=== PATIENT | female | born 2000 | race Caucasian/White ===

== ENCOUNTER 2019-09-20 18:24 | Inpatient (IN) | payer OTHER ==
[~2019-09-20] VITALS: Ht 157.5 cm; Wt 68.0 kg
[2019-09-20] MEDS ORDERED: RHO(D) IMMUNE GLOBULIN 300 MCG/SYR IM PRN (19:30)
[2019-09-20] MEDS ORDERED: IBUPROFEN 400MG TABLET PO PRN (19:30)
[2019-09-20] MEDS ORDERED: DEXT 5%/LR + PITOCIN 20UNITS/L 1,000 ML IV SCH (21:04)
[2019-09-20] MEDS ORDERED: RHO(D) IMMUNE GLOBULIN 300 MCG/SYR IM ONE (21:15)
[2019-09-20 21:23] LABS: CLARITY URINE CLEAR (CLEAR); COLOR URINE YELLOW (YELLOW); KETONES URINE TRACE (NEGATIVE); LEUKOCYTE ESTERASE URINE TRACE (NEGATIVE); NITRITE URINE NEGATIVE (NEGATIVE); OCCULT BLOOD URINE TRACE (NEGATIVE); PH URINE 6.5 (4.5-8.0); PROTEIN URINE 3+ (NEGATIVE); SPECIFIC GRAVITY URINE 1.013 (1.005-1.030)
[2019-09-20 21:27] LABS: HEMATOCRIT. 24.6 % (36.0-48.0); HEMOGLOBIN. 7.8 g/dL (12.0-16.0); MEAN CORPUSCULAR HEMOGLOBIN 26.7 pg (28.0-32.0); MEAN CORPUSCULAR VOLUME 84.1 fL (81.0-99.0); MEAN PLATELET VOLUME 7.1 fl (7.4-10.4); PLATELET 422 x1000/uL (130-400); RED BLOOD CELL COUNT 2.93 mill/uL (4.2-5.4); RED CELL DISTRIBUTION WIDTH 13.9 % (11.6-14.6)
[2019-09-20 21:30] LABS: INR 0.9; PARTIAL THROMBOPLASTIN TIME 23.1 sec (23.4-31.0); PROTHROMBIN TIME 9.9 sec (9.6-11.0)
[2019-09-20 21:47] LABS: CHLORIDE 100 mEq/L (98-107)
[2019-09-20 21:55] VITALS: BP 154/93
[2019-09-20 21:57] LABS: *AMPHETAMINES SCREEN URINE NEGATIVE (NEGATIVE); *BARBITURATES SCREEN URINE NEGATIVE (NEGATIVE); *BENZODIAZEPINES SCREEN URINE NEGATIVE (NEGATIVE); *COCAINE SCREEN URINE NEGATIVE (NEGATIVE); OPIATES URINE SCREEN NEGATIVE (NEGATIVE); PHENCYCLIDINE URINE SCREEN NEGATIVE (NEGATIVE)
[2019-09-20 22:03] LABS: METHADONE URINE SCREEN NEGATIVE (NEGATIVE)
[2019-09-20 22:06] LABS: CANNABINOID URINE SCREEN PRESUMTIVE POSITIVE (NEGATIVE)
[2019-09-20 22:30] VITALS: BP 136/89
[2019-09-20 23:00] VITALS: BP 141/90
[2019-09-20 23:20] LABS: HEPATITIS B SURFACE ANTIGEN NEGATIVE
[2019-09-21 00:15] VITALS: BP 135/96
[2019-09-21 04:15] VITALS: BP 128/84
[2019-09-21 05:56] LABS: BASOPHILS % 0.3 % (0.0-2.0); EOSINOPHILS % 0.1 % (0.0-5.0); LYMPHOCYTES % 15.8 % (20.0-50.0); MEAN CORPUSCULAR HEMOGLOBIN 28.3 pg (28.0-32.0); MEAN CORPUSCULAR VOLUME 82.1 fL (81.0-99.0); MEAN PLATELET VOLUME 7.1 fl (7.4-10.4); NEUTROPHILS % 77.8 % (40.0-76.0); PLATELET 354 x1000/uL (130-400); RED BLOOD CELL COUNT 2.47 mill/uL (4.2-5.4); RED CELL DISTRIBUTION WIDTH 13.6 % (11.6-14.6)
[2019-09-21 07:51] LABS: HEMATOCRIT. 20.3 % (36.0-48.0)
[2019-09-21 08:00] VITALS: BP 117/63
[2019-09-21 08:52] LABS: PLATELET ESTIMATE INCREASED
[2019-09-21] MEDS: PRENATAL VIT/FE FUMARATE/FA TABLET PO SCH (16:12)
[2019-09-21] MEDS: IBUPROFEN 800MG TABLET PO PRN (16:12)
[2019-09-21 17:45] VITALS: BP 131/87
[2019-09-21 22:00] VITALS: BP 138/90
[2019-09-22 04:30] VITALS: BP 136/74
[2019-09-22 08:00] VITALS: BP 118/71
[2019-09-22] MEDS: PRENATAL VIT/FE FUMARATE/FA TABLET PO SCH (09:49)
[2019-09-22] MEDS: IBUPROFEN 800MG TABLET PO PRN (09:50)
[2019-09-25 17:09] LABS: CANNABINOID CONFIRMATION URINE Positive (.)
== END 2019-09-22 18:45 | disposition home or self-care (01) | DRG 776 ==
LOC: 8 EST LDRP 18:24 → OBSVTOIN 18:24 → 8 EST LDRP 18:37 → 8EST 21:41
PROVIDERS: ADMIT Obstetrics & Gynecology; ATTEND Obstetrics & Gynecology
PROC: 10E0XZZ Delivery of Products of Conception, External Approach (ICD-10-PCS; principal; 2019-09-20)
DX: O13.5 Gestational [pregnancy-induced] hypertension without significant proteinuria, complicating the puerperium (principal); O99.325 Drug use complicating the puerperium; O70.0 First degree perineal laceration during delivery; J45.909 Unspecified asthma, uncomplicated; E87.6 Hypokalemia; F12.10 Cannabis abuse, uncomplicated; F10.10 Alcohol abuse, uncomplicated; O99.285 Endocrine, nutritional and metabolic diseases complicating the puerperium; O99.315 Alcohol use complicating the puerperium; O99.345 Other mental disorders complicating the puerperium; F53.0 Postpartum depression; F41.9 Anxiety disorder, unspecified; O99.53 Diseases of the respiratory system complicating the puerperium
CPT/HCPCS: 36415; 80053; 80305; 80349; 81003; 84550; 85025; 86592; 86703; 86762; 86850; 86900; 87340; 99281; J2590

== ENCOUNTER 2024-06-10 15:15 | Emergency (ER) | payer OTHER ==
[~2024-06-10] VITALS: Ht 160 cm; Wt 59.0 kg
[2024-06-10] MEDS: KETOROLAC 30MG/ML VIAL IV STA (17:09)
[2024-06-10] MEDS: LIDOCAINE HCL 1% 20ML VIAL INFIL ONE (17:37)
[2024-06-10] MEDS: FENTANYL CITRATE/PF 50MCG/ML 2ML VIAL IV ONE (18:00)
[2024-06-10] MEDS: PROPOFOL 200MG/20ML VIAL IV ONE (19:17)
[2024-06-10 19:32] VITALS: O2SAT 100
[2024-06-10 20:30] VITALS: BP 120/75; PULSE 72; RESP 16; TEMP 36.9; O2SAT 100
[2024-06-10] MEDS ORDERED: IBUP-2029 MT (20:33)
== END 2024-06-10 21:22 | disposition home or self-care (01) ==
LOC: ER 15:15
DX: M25.531 Pain in right wrist (principal); S52.591A Other fractures of lower end of right radius, initial encounter for closed fracture; V49.40XA Driver injured in collision with unspecified motor vehicles in traffic accident, initial encounter; Y93.89 Activity, other specified; Y92.89 Other specified places as the place of occurrence of the external cause; Y99.8 Other external cause status
CPT/HCPCS: 25605; 81025; 73100; 73110; 96374; 99152; 99285; J1885; J3010; J3490; J2704